=== PATIENT | female | born 1950 | race Caucasian/White ===

== ENCOUNTER → 2019-04-30 | Outpatient (CLI) | payer MEDICARE ==
[~2019-04-30] MED LIST: ALBU0.63 NEB; ALBU2.5V8 INH; ALEN70TA6 PO; BUPIVACAINE MPF 0.25% 10 ML VIAL. ONE; DIAZEPAM10 MG PO; DULA0.75 SQ; FLUT100D IH; FLUT1DIS5 IH; LEVO50TA PO; MONT10TA49 PO; PARO25TA13 PO; PRED2.5T PO; RISP0.5T3 PO; SIMV20TA3 PO; TOPI100T8 PO; VALA500T PO; methylPREDNISolone ACETATE 40 MG/ML VIAL. ONE; methylPREDNISolone ACETATE 80 MG/ML VIAL. ONE
--- NOTE | 2019-05-01 00:34 | PAIN ---
DATE OF SERVICE: 04/30/2019 INITIAL CONSULTATION FOR PAIN CLINIC CHIEF COMPLAINT: Low back and left hip pain. HISTORY OF PRESENT ILLNESS: The patient is a 68-year-old female who presents with history of pain in the low back on the left side greater than right for many years, about 2 years, most recently increasing, but going on since 1989. The patient reports over the past 2 years the pain has been increasing with standing, walking, changing positions. It is a constant pain described as throbbing, aching in the low back, not with much radiation in the lower extremities, some in the posterior gluteus on the left and into the thigh occasionally. The patient reports it awakens her from sleep 2-3 times a night, does not affect her bowel or bladder control, but does affect her ability to walk. She is hunching forward. She notices she is leaning on a shopping cart and leaning forward to decrease the pain. The patient reports that sitting does decrease the pain significantly as does lying down, but only for a few hours. The patient reports she has had previous epidural injections in an outside facility, physical therapy, chiropractic treatment and doing exercise currently all of which did help to some extent, but nothing has been long lasting. The patient did have a new MRI scan of the lumbar spine showing degenerative disk disease at L5-S1, marked facet arthrosis without significant stenosis at L4-L5 and marked facet arthrosis without stenosis at L5-S1. The patient rates her disability from 0-10, 10 being the worst, is a 10 with family and home responsibilities, recreation, social activity as well as a 9-10 with self-care and 9 with life support activities. PAST MEDICAL HISTORY: Significant for arthritis, diverticulitis, type 2 diabetes, chronic obstructive pulmonary disease, emphysema, and hypothyroidism. PREVIOUS SURGERY: Include cholecystectomy, appendectomy, partial hysterectomy, and bilateral cataract extractions. CURRENT MEDICATIONS: Include Advair inhaler, Trulicity, alendronate, topiramate, risperidone, paroxetine, simvastatin, diazepam, Singulair, prednisone p.r.n., Synthroid, albuterol inhaler, ProAir inhaler, fluticasone, and valacyclovir. ALLERGIES: THE PATIENT IS ALLERGIC TO IODINE. FAMILY HISTORY: Significant for heart disease and cancers. SOCIAL HISTORY: The patient does not drink alcohol, does not smoke. Denies any illegal, illicit or recreational drugs. Lives with her son who is an adult locally in [place]. REVIEW OF SYSTEMS: The patient's review of systems is positive for those items mentioned in history present illness. All systems reviewed and otherwise negative. It is complete, full and well documented on the patient's chart. PHYSICAL EXAMINATION: VITAL SIGNS: The patient's blood pressure 105/72, pulse 90, respirations 16, temperature 98.3 degrees Fahrenheit, height 5 feet 7 inches, and weight 197 pounds. GENERAL: The patient is awake, alert, oriented, appropriate, very pleasant demeanor. HEENT: Shows normocephalic, atraumatic. Extraocular movements are intact and symmetrical. Oral cavity: Mucous membranes moist and pink. Dentition is intact. NECK: Shows anterior throat supple without palpable lymphadenopathy noted. Swallow reflex symmetrical. CHEST: Shows normal on inspection. Breath sounds clear to auscultation bilaterally. HEART: Shows S1, S2 clear. No murmurs auscultated. ABDOMEN: Soft, nontender, and nondistended. No palpable organomegaly is noted. No rebound or guarding demonstrated. BACK: Shows spine grossly in the midline. Normal appearing thoracic kyphosis and lumbar lordotic curvature. Lumbar paraspinous muscle shows symmetrical on inspection, on palpation shows some moderate tenderness diffusely bilaterally, but only diffusely without radiation. EXTREMITIES: The patient's lower extremities show deep tendon reflexes at 1+ patellar and tendo-calcaneus tendons are equal. Motor exam is strong with 5/5 dorsiflexion, extension, quadriceps and hamstring flexion and symmetrical. Peripheral pulses are 1+ posterior tibia. No peripheral edema is noted. Lower extremities are warm and dry to touch, equal in color and appearance. Straight leg raise noted to be negative for reproduction of radicular symptoms bilaterally as Gaenslen's and Benny's maneuvers are negative bilaterally. The patient does show significant tenderness with extension of the lumbar spine and axial loading of the low back with pain slightly worse on the left than the right, but present bilaterally. This is better with forward flexion at 45 degrees, which she performs fully, also rotation to right and left greater than 10 degrees shows some mild pain, but only mildly bilaterally. The patient is able to stand, stand on her toes, walks without any assistive devices. Has no significant limp or antalgic gait noted. The patient's skin shows warm and dry, good turgor. No edema. No sores, rashes or bruising throughout. IMPRESSION: 1. This is a 68-year-old female with a long history of low back pain, worse over the past 2 years. 2. MRI scan of lumbar spine as noted. 3. Arthritis. 4. Chronic obstructive pulmonary disease. 5. Diabetes. PLAN: Options were discussed with the patient including conservative medical managements, physical therapies and interventional techniques. She would like to proceed with interventional techniques. We discussed bilateral L4-L5 and L5-S1 facet joint injections using description as well as anatomical models to describe the procedure. Risks were then discussed including, but not limited to bleeding, infection, possibility of epidural hematoma, subsequent neurological compromise, dural puncture, headaches, spinal cord and/or nerve damage, side effects of steroid medication and poor results regarding pain control. The patient understands and wished to proceed. The patient will return to clinic in approximately 2 weeks for followup. She was counseled on return appointment, activity level, and side effects to be aware of. DIAGNOSES: Lumbar and lumbosacral spondylosis with lumbar degenerative disk disease. PROCEDURE: Bilateral L4-L5 and L5-S1 facet joint injections using C-arm fluoroscopic guidance under sterile prep and drape using local anesthetic. MEDICATION INJECTED: 120 mg Depo-Medrol plus total of 4 mL of 0.25% bupivacaine with negative aspiration at each injection site. CONDITION AT DISCHARGE: Stable. The patient tolerated procedure well, had no complications. MENDEL MURRELL MD DR: RONIT/devyn JOB#: [id number] / [id number]
== END ==
LOC: PNCL 12:46
PROVIDERS: ATTEND Anesthesiology
DX: M47.817 Spondylosis without myelopathy or radiculopathy, lumbosacral region (principal); M51.36 Other intervertebral disc degeneration, lumbar region; J43.9 Emphysema, unspecified; E03.9 Hypothyroidism, unspecified; Z90.49 Acquired absence of other specified parts of digestive tract; Z90.710 Acquired absence of both cervix and uterus; Z98.42 Cataract extraction status, left eye; Z98.41 Cataract extraction status, right eye; Z91.041 Radiographic dye allergy status; Z79.84 Long term (current) use of oral hypoglycemic drugs; Z96.1 Presence of intraocular lens
CPT/HCPCS: 64493; 64494; J1030; J1040; J3490

== ENCOUNTER → 2019-05-15 | Outpatient (CLI) | payer MEDICARE ==
[~2019-05-15] MED LIST changes: -BUPIVACAINE MPF 0.25% 10 ML VIAL. ONE; +SIMV20TA18 PO; -SIMV20TA3 PO; -methylPREDNISolone ACETATE 40 MG/ML VIAL. ONE; -methylPREDNISolone ACETATE 80 MG/ML VIAL. ONE
--- NOTE | 2019-05-15 15:21 | PN ---
DATE: 05/15/2019 PROGRESS NOTE FOR PAIN CLINIC DIAGNOSES: Lumbar and lumbosacral spondylosis and lumbosacral degenerative disk disease. HISTORY OF PRESENT ILLNESS: The patient is a 68-year-old female who returns for followup status post bilateral L4-L5 and L5-S1 facet joint injections. The patient reports about 50% improvement overall and is still lasting even 2 weeks later. The patient reports that she is able to stand for much longer, she can stand for about 30 minutes before the pain becomes enough for she wants to sit down and rest, but doing much better. The patient reports otherwise she is walking with greater distances, doing work activities, household activities with greater increase in activity tolerance. The patient reports the pain is worse in the past week and is a 9 on a scale of 10, 6-7 on average and a 4 at its least and is a 4 today. The patient reports it is aching, dull, tight, radiating at times into the lower extremities, but only rarely in the posterior gluteus bilaterally mostly on the left. The patient reports no new motor or sensory deficits. Sleeping well at night, does not awaken her from sleep. PHYSICAL EXAMINATION: VITAL SIGNS: The patient's blood pressure 126/70, pulse 87, respirations 18, temperature 97.7 degrees Fahrenheit, height is 5 feet 7 inches, weight is 198 pounds. GENERAL: The patient is awake, alert, oriented, appropriate, very pleasant demeanor. HEENT: Shows normocephalic, atraumatic. Extraocular movements are intact and symmetrical. Oral cavity: Mucous membranes moist and pink. NECK: Shows anterior throat supple. CHEST: Normal on inspection. Breath sounds clear bilaterally. HEART: Shows S1, S2 clear. ABDOMEN: Soft, nontender. BACK: Shows spine grossly in the midline, slight exaggerated thoracic kyphosis, minor flattening of lumbar lordotic curvature. Lumbar paraspinous muscle shows symmetrical on inspection, with palpation shows some moderate tenderness diffusely, but only mildly and to moderately in the low lumbar distribution bilaterally without atrophy, hypertrophy or asymmetry. The patient has good rotational motion of lumbar spine, both laterally as well as extension and flexion without significant difficulty. EXTREMITIES: The patient's lower extremities show deep tendon reflexes at 1+ in the patellar and tendo calcaneus tendons. Motor exam is 5/5 with dorsiflexion, extension, quadriceps and hamstring flexion and symmetrical. Peripheral pulses are 1+ posterior tibia. No peripheral edema is noted bilaterally. Options were discussed with the patient. The patient's old chart was reviewed as her current medication regimen updated. Current review of systems updated today as well. We will hold on any further injections at this time as the patient would like to wait on any further procedures. She is doing quite a bit better. We encouraged her to increase her activity as tolerated. Also, continue stretching and strengthening exercises and we will report back on an as needed basis if pain returns. MENDEL MURRELL MD DR: RONIT/devyn JOB#: [id number] / [id number]
== END | disposition home or self-care (01) ==
LOC: PNCL 13:07
PROVIDERS: ATTEND Anesthesiology
DX: M47.896 Other spondylosis, lumbar region (principal); M51.37 Other intervertebral disc degeneration, lumbosacral region
CPT/HCPCS: G0463

== ENCOUNTER → 2019-05-31 | Outpatient (CLI) | payer MEDICARE ==
[~2019-05-31] MED LIST changes: +BUPIVACAINE MPF 0.25% 10 ML VIAL. ONE; +IOHEXOL 180 MG/ML 10 ML VIAL. ONE; -SIMV20TA18 PO; +SIMV20TA3 PO; +methylPREDNISolone ACETATE 40 MG/ML VIAL. ONE; +methylPREDNISolone ACETATE 80 MG/ML VIAL. ONE
--- NOTE | 2019-06-01 11:32 | PAIN ---
DATE OF SERVICE: 05/31/2019 PROGRESS NOTE FOR PAIN CLINIC DIAGNOSIS: Lumbar and lumbosacral spondylosis with lumbosacral degenerative disk disease. HISTORY OF PRESENT ILLNESS: The patient is a 68-year-old female who returns for followup status post bilateral facet joint injections on 04/30/2019. The patient did very well for about the first 3 weeks and the pain began to return gradually and is returning now over the past 2-3 weeks in the low back with some radiation into the posterior left gluteus at times, but not any further. The patient reports it is burning, stabbing, aching, sharp, shooting across the back; becoming more constant with walking, standing, changing positions; better with sitting or lying down; does not awaken her from sleep at night; worse with standing, especially with extension of the lumbar spine or bending and flexing repetitively. The patient reports her pain is 10 on a scale of 10 at its worst in the past week, 9 on average, 9 at its least and is a 9 today. The patient reports no new motor or sensory deficits, no new changes. PHYSICAL EXAMINATION: VITAL SIGNS: The patient's blood pressure is 126/75, pulse 103, respirations 18, temperature 98.4 degrees Fahrenheit. Height is 5 feet 7 inches, weighs 199 pounds. GENERAL: The patient is awake, alert, oriented, appropriate, very pleasant demeanor. HEENT: Shows normocephalic, atraumatic. Extraocular movements are intact and symmetrical. Oral cavity: Mucous membranes moist and pink. Dentition is intact. NECK: Shows anterior throat supple without palpable lymphadenopathy noted. Swallow reflex symmetrical. CHEST: Shows normal on inspection. Breath sounds clear to auscultation bilaterally. HEART: Shows S1, S2 clear. No murmurs auscultated. ABDOMEN: Soft, nontender, nondistended. No palpable organomegaly is noted. No rebound or guarding demonstrated. BACK: Shows spine grossly in the midline. Normal appearing thoracic kyphosis and lumbar lordotic curvature. Lumbar paraspinous muscle shows symmetrical on inspection, on palpation shows some moderate tenderness diffusely throughout the upper, middle and lower distribution of paraspinous muscles, but mostly in the lower distribution, more significantly without radiation, without trigger points, without any atrophy or hypertrophy noted. The patient shows good rotational motion, but with moderate tenderness, especially to the left with greater than 10 degrees rotation of the lumbar spine that is true with extension, which is significantly tender more on the left side than the right, but present bilaterally and better with forward flexion at 45 degrees, which was performed without significant difficulty. EXTREMITIES: The patient's lower extremities show deep tendon reflexes 1+ in the patellar and tendo calcaneus tendons. Motor exam is 5/5 with dorsiflexion, extension, quadriceps and hamstring flexion and symmetrical. Peripheral pulses are 1+ posterior tibial. No peripheral edema is noted bilaterally. Options were discussed with the patient. The patient's old chart was reviewed as her current medication regimen updated. Current review of systems updated today as well. We will proceed with repeat bilateral L4-L5 and L5-S1 facet joint injections with fluoroscopic guidance. Risks were again discussed including, but not limited to bleeding, infection, possibility of epidural hematoma, subsequent neurological compromise, dural puncture, headaches, spinal cord and/or nerve damage, side effects of steroid medication and poor results regarding pain control. The patient understands and wished to proceed. The patient will return to clinic in approximately 2 weeks for follow up. She was counseled on return appointment, activity level and side effects to be aware of. DIAGNOSES: Lumbar and lumbosacral spondylosis. PROCEDURE: Bilateral L4-L5 and L5-S1 facet joint injections using C-arm fluoroscopic guidance under sterile prep and drape using local anesthetic. MEDICATION INJECTED: Total of 120 mg Depo-Medrol plus 4 mL of 0.25% bupivacaine CONDITION AT DISCHARGE: Stable. The patient tolerated the procedure well, had no complications. MENDEL MURRELL MD DR: RONIT/devyn JOB#: [id number] / [id number]
== END ==
LOC: PNCL 14:24
PROVIDERS: ATTEND Anesthesiology
DX: M47.817 Spondylosis without myelopathy or radiculopathy, lumbosacral region (principal); M51.36 Other intervertebral disc degeneration, lumbar region
CPT/HCPCS: 64493; 64494; J1030; J1040; J3490; Q9965

== ENCOUNTER → 2019-06-28 | Outpatient (CLI) | payer MEDICARE ==
[~2019-06-28] MED LIST changes: -BUPIVACAINE MPF 0.25% 10 ML VIAL. ONE; -IOHEXOL 180 MG/ML 10 ML VIAL. ONE; +SIMV20TA18 PO; -SIMV20TA3 PO; -methylPREDNISolone ACETATE 40 MG/ML VIAL. ONE; -methylPREDNISolone ACETATE 80 MG/ML VIAL. ONE
--- NOTE | 2019-06-28 23:21 | PAIN ---
DATE OF SERVICE: 06/28/2019 PROGRESS NOTE FOR PAIN CLINIC DIAGNOSES: Lumbar and lumbosacral spondylosis with lumbar degenerative disk disease. HISTORY OF PRESENT ILLNESS: The patient is a 68-year-old female who returns for followup status post bilateral L4-L5 and L5-S1 facet joint injections with good results about 80-90% with the first injection and about 75% with the second injection, lasting for about a week or so. The patient reports now the pain is about 25-30% improved overall, but still having some good effect of decreasing the pain. She has been able to stand longer, doing dishes at the sink, which is one of her main complaint. She was unable to do secondary to the pain and is doing this much better. It does not awaken her from sleep at night, better with sitting or lying down. It is across the low back without any radicular pain in the lower extremities. The patient reports it is a 10 on a scale of 10 at its worst over the past week, 9 on average, 8 at its least and is an 8 today. The patient reports it is aching, dull, stabbing, burning, constant until she sits or lies down. The patient reports again sleeping well through the night, does not awaken her from sleep, but did very well after the second set of injections. PHYSICAL EXAMINATION: VITAL SIGNS: The patient's blood pressure 108/61, pulse 93, respirations 16, temperature 97.5 degrees Fahrenheit, height is 5 feet 7 inches, weighs 198 pounds. GENERAL: The patient is awake, alert, oriented, appropriate, very pleasant demeanor. HEENT: Shows normocephalic, atraumatic. Extraocular movements are intact and symmetrical. Oral cavity, mucous membranes are moist and pink. Dentition is intact. NECK: Shows anterior throat supple without palpable lymphadenopathy noted. Swallow reflex is symmetrical. CHEST: Shows normal on inspection. Breath sounds are clear to auscultation bilaterally. HEART: Shows S1, S2 clear. No murmurs auscultated. ABDOMEN: Soft, nontender, nondistended. No palpable organomegaly is noted. No rebound or guarding demonstrated. BACK: Shows spine grossly in the midline, normal appearing thoracic kyphosis and lumbar lordotic curvature. Lumbar paraspinous muscle shows symmetrical on inspection, with palpation shows some moderate tenderness throughout the middle and lower distribution of the paraspinous muscles. No tenderness over the spinous processes, sacrum or sacroiliac regions. The patient has good rotational motion with some moderate tenderness, more to the right than the left, with lateral rotation greater than 10 degrees. With extension at 10 degrees, there is significant pain bilaterally in the low back, more on the right again than the left, but present bilaterally. This is better with forward flexion at 45 degrees, which decreases the pain fairly significantly. EXTREMITIES: The patient's lower extremities show deep tendon reflexes 1+ in the patellar and tendo-calcaneus tendons. Motor exam is strong with 5/5 dorsiflexion, extension, quadriceps and hamstring flexion are symmetrical. Peripheral pulses are 1+ posterior tibial. No peripheral edema is noted bilaterally. PLAN: Options were discussed with the patient. The patient's old chart was reviewed as her current medication regimen updated. Current review of systems updated today as well. We discussed potential radiofrequency ablation as she has done very well with 2 sets of lumbar facet injections for a temporary period, but with significant improvement. The patient is apprehensive about proceeding with this. She would like to do some more research on her own, would like to think about it and consider it for the future. We discussed the procedure in detail using anatomical models as well to describe the procedure, as well as risks discussed today also. The patient would like to consider it and think about this more. We will have her return at this time on as needed basis. We will also try Medrol Dosepak in the meantime to see if this may afford her some pain relief. In the meantime, I also discussed potential physical therapy and water therapy. She would like to consider all these, but does not opt to make a decision about any of these today. We will have her follow up at this time on as needed basis. MENDEL MURRELL MD DR: RONIT/devyn JOB#: [id number] / [id number]
== END | disposition home or self-care (01) ==
LOC: PNCL 12:54
PROVIDERS: ATTEND Anesthesiology
DX: M51.36 Other intervertebral disc degeneration, lumbar region (principal); M47.817 Spondylosis without myelopathy or radiculopathy, lumbosacral region
CPT/HCPCS: G0463

== ENCOUNTER → 2019-08-21 | Outpatient (CLI) | payer MEDICARE ==
[~2019-08-21] MED LIST changes: +BUPIVACAINE MPF 0.25% 10 ML VIAL. ONE; +IOHEXOL 180 MG/ML 10 ML VIAL. ONE; +methylPREDNISolone ACETATE 40 MG/ML VIAL. ONE; +methylPREDNISolone ACETATE 80 MG/ML VIAL. ONE
--- NOTE | 2019-08-22 00:40 | PAIN ---
DATE OF SERVICE: 08/21/2019 PROGRESS NOTE FOR PAIN CLINIC DIAGNOSIS: Lumbar and lumbosacral spondylosis with lumbar degenerative disk disease. HISTORY OF PRESENT ILLNESS: The patient is a 68-year-old female who returns for followup status post lumbar facet joint injections at L4-L5 and L5-S1 bilaterally, most recently on 05/31/2019. The patient did well with about 80% improvement initially and then about a 25% after time for about 1 month. The patient reports the pain is returning now. She was ill, had a bad cough on her last visit and rescheduled for today. The patient reports still significant pain in the low back bilaterally, somewhat worse on the left than the right but present bilaterally across the low back, worse with walking, standing, sitting for prolonged periods. The patient reports it is better with sitting or lying down, does not awaken her from sleep at night generally. The patient reports it is a 9 on a scale of 10 at its worst in the past week, 9 on average, 7 at its least and is a 7 today. The patient reports it is aching, sharp, dull, shooting, stabbing, tingling with constant pain, on and off lying down, standing or sitting. The patient reports no new motor or sensory deficits, no new bowel or bladder incontinence. PHYSICAL EXAMINATION: VITAL SIGNS: The patient's blood pressure 104/64, pulse 101, respirations 18, temperature 97.4 degrees Fahrenheit, height is 5 feet 6-1/2 inches and weight is 200 pounds. GENERAL: The patient is awake, alert, oriented, appropriate, very pleasant demeanor. HEENT: Head shows normocephalic, atraumatic. Extraocular movements are intact and symmetrical. Oral cavity shows mucous membranes are moist and pink. Dentition is intact. NECK: Shows anterior throat supple without palpable lymphadenopathy noted. Swallow reflex symmetrical. CHEST: Shows normal on inspection. Breath sounds are clear bilaterally. HEART: Shows S1, S2 clear. No murmurs auscultated. ABDOMEN: Soft, nontender, nondistended. BACK: Shows spine grossly in the midline. Slight exaggeration of thoracic kyphosis, some minor flattening of the lumbar lordotic curvature. Lumbar paraspinous muscle shows symmetrical on inspection, on palpation shows some moderate tenderness diffusely on the low lumbar distribution bilaterally without radiation. No tenderness to the spinous processes, sacrum or sacroiliac regions. The patient has good rotational motion both laterally greater than 10 degrees, some moderate tenderness greater to the left than the right with rotation and significant tenderness with extension and axial loading of the low back, better with forward flexion at 45 degrees without significant difficulty. Extension at 10 degrees or greater though was significantly painful, but without significant radiation. EXTREMITIES: Lower extremities show deep tendon reflexes at 1+ in the patellar and tendo calcaneus tendons are equal. Motor exam is 5/5 with dorsiflexion, extension, quadriceps and hamstring flexion and symmetrical. Peripheral pulses are 1+ posterior tibia. No peripheral edema bilaterally. Options were discussed with the patient. The patient's old chart was reviewed as her current medication regimen updated. Current review of systems updated today as well. We will proceed with bilateral L4-L5 and L5-S1 facet joint injections today with fluoroscopic guidance. Risks were again discussed including, but not limited to bleeding, infection, possibility of epidural hematoma, subsequent neurological compromise, dural puncture, headaches, spinal cord and/or nerve damage, side effects of steroid medication and poor results regarding pain control. The patient understands and wished to proceed. The patient will return to clinic in approximately 2 weeks for followup. She was counseled on return appointment, activity level and side effects to be aware of. DIAGNOSIS: Lumbar and lumbosacral spondylosis. PROCEDURES: Bilateral L4-L5 and L5-S1 facet joint injections using C-arm fluoroscopic guidance under sterile prep and drape using local anesthetic. MEDICATION INJECTED: A total of 120 mg of Depo-Medrol plus 4 mL of 0.25% bupivacaine. CONDITION AT DISCHARGE: Stable. The patient tolerated the procedure well, had no complications. MENDEL MURRELL MD DR: RONIT/devyn JOB#: [id number] / [id number]
== END ==
LOC: PNCL 13:55
PROVIDERS: ATTEND Anesthesiology
DX: M47.816 Spondylosis without myelopathy or radiculopathy, lumbar region (principal); M51.36 Other intervertebral disc degeneration, lumbar region
CPT/HCPCS: 64493; 64494; J1030; J1040; J3490; Q9965